=== PATIENT | female | born 1955 | race Caucasian/White ===

== ENCOUNTER 2017-08-25 13:44 | Emergency (ER) | payer OTHER ==
[2017-08-25] MEDS ORDERED: HYDROcodone/Acetaminophen 10/325 mg Tablet ONE (14:09)
--- NOTE | 2017-08-25 14:21 | RAD ---
LEFT HIP 2 VIEWS: Date: 08/25/17 HISTORY: Left hip pain without trauma. FINDINGS/IMPRESSION: There are postop changes with metallic hardware in the left proximal femur in good position and align ment. No fracture, dislocation, or bone destruction is seen. No perihardware lucencies are identified to suggest loosening. Mild degenerative changes are seen in the left hip joint. POS: ÓSCAR
== END 2017-08-25 14:41 | disposition home or self-care (01) ==
LOC: MADERS 13:44
DX: M79.81 Nontraumatic hematoma of soft tissue (principal); M25.552 Pain in left hip; J45.909 Unspecified asthma, uncomplicated; Z79.899 Other long term (current) drug therapy

== ENCOUNTER 2017-10-19 11:44 | Outpatient (CLI) | payer OTHER ==
[2017-10-19 12:50] LABS: Bilirubin Negative (Negative); Blood, Urine Moderate (Negative); Clarity Cloudy (Clear); Glucose, Urine (Dipstick) Negative (Negative); Leukocyte Large (Negative); Nitrite Negative (Negative); Protein, Urine (Dipstick) 100 mg/dL (Neg-Trace); Urobilinogen 0.2 mg/dL (0.2-1.0)
[2017-10-19 12:57] LABS: RBC/HPF 21-50 HPF (0-3)
[2017-10-19 12:58] LABS: Bacteria/HPF 1+ HPF (None Seen)
== END 2017-10-19 11:45 | disposition home or self-care (01) ==
LOC: MADLABBHPM 11:44
PROVIDERS: ATTEND Family Medicine
DX: M54.5 Low back pain (principal)
CPT/HCPCS: 81001; 87077; 87086; 87186

== ENCOUNTER 2017-10-28 08:32 | Emergency (ER) | payer OTHER ==
[2017-10-28] MEDS ORDERED: HYDROcodone/Acetaminophen 10/325 mg Tablet ONE (09:11)
[2017-10-28 09:16] LABS: Bilirubin Negative (Negative); Blood, Urine Trace (Negative); Clarity Clear (Clear); Glucose, Urine (Dipstick) Negative (Negative); Leukocyte Small (Negative); Nitrite Negative (Negative); Protein, Urine (Dipstick) Negative (Neg-Trace); Urobilinogen 0.2 mg/dL (0.2-1.0)
[2017-10-28 09:23] LABS: Bacteria/HPF Rare-Few HPF (None Seen); Hyaline Casts/LPF NONE SEEN LPF (0-3 Hyaline); RBC/HPF 0-3 HPF (0-3)
== END 2017-10-28 10:25 | disposition home or self-care (01) ==
LOC: MADERS 08:32
DX: N39.0 Urinary tract infection, site not specified (principal); J45.909 Unspecified asthma, uncomplicated; Z79.899 Other long term (current) drug therapy
CPT/HCPCS: 81003; 81015; 99283

== ENCOUNTER 2018-05-25 17:50 | Inpatient (IN) | payer BC, OTHER ==
[2018-05-25] MEDS ORDERED: HYDROcodone/Acetaminophen 10/325 mg Tablet PO PRN (20:59)
[2018-05-25] MEDS ORDERED: Senokot S 8.6-50 MG TAB PO SCH (21:15)
[2018-05-25] MEDS: Famotidine 20 MG TAB PO SCH (21:53)
[2018-05-25] MEDS: HYDROcodone/Acetaminophen 10/325 mg Tablet PO PRN (21:55)
[2018-05-26 05:40] LABS: ALT (SGPT) 8 U/L (8-55); AST (SGOT) 15 U/L (5-34); Albumin 3.1 g/dL (3.4-4.8); Alkaline Phosphatase 126 U/L (40-150); Anion Gap 15 mmol/L (10-20); BUN (Urea Nitrogen) 15 mg/dL (9.8-20.1); Bilirubin, Total 0.3 mg/dL (0.2-1.2); Calc. Creatinine Clearance 87 mL/min (70-130); Calcium 8.6 mg/dL (7.8-10.44); Carbon Dioxide 22 mmol/L (23-31); Chloride 107 mmol/L (98-107); Estimated GFR-MDRD 73; Globulin 2.8 g/dL (2.4-3.5); Glucose 90 mg/dL (80-115); Potassium 3.7 mmol/L (3.5-5.1); Protein, Total 5.9 g/dL (6.0-8.3); Sodium 140 mmol/L (136-145)
[2018-05-26 05:44] LABS: Hemoglobin 9.9 g/dL (12.0-16.0); Mean Corpuscular HGB CONC 33.2 g/dL (32.0-36.0); Mean Corpuscular Hemoglobin 29.9 pg (27.0-31.0); Mean Corpuscular Volume 89.9 fL (78.0-98.0); Mean Platelet Volume 6.2 fL (7.4-10.4); Platelet Count 252 thou/uL (130-400); RBC Distribution Width 12.4 % (11.5-14.5); Red Blood Cell (RBC) Count 3.31 mill/uL (4.20-5.40); White Blood Cell (WBC) Count 12.4 thou/uL (4.8-10.8)
[2018-05-26 06:04] LABS: Band 6 % (5-11); Eosinophils 5 % (0-10); Lymphocytes 25 % (21-51); MDiff Complete? YES; Metamyelocyte 3 % (0-0); Monocytes 4 % (0-10); Myelocyte 1 % (0-0); Neutrophil 56 % (42-75)
[2018-05-26] MEDS: Famotidine 20 MG TAB PO SCH ×2 (08:29→20:13)
[2018-05-26] MEDS: Polyethylene Glycol 3350 17 GM Packet PO SCH (08:29)
[2018-05-26] MEDS: Senokot S 8.6-50 MG TAB PO SCH ×2 (08:29→20:13)
[2018-05-26] MEDS: HYDROcodone/Acetaminophen 10/325 mg Tablet PO PRN ×3 (08:30→20:14)
--- NOTE | 2018-05-26 11:36 | HP ---
CHIEF COMPLAINT: Weakness following a right total knee arthroplasty on 05/23. PRESENT ILLNESS: The patient is a 62-year-old white female who has a history of asthma that is well controlled. She is independent of all her ADLs. She has severe degenerative arthritis of the right knee for which she required a total knee replacement done by Dr. Julien Cazares at [facility] on 05/23/2018. Postoperatively, she did very well with no complications. She had been up walking short distances and is moving the legs. Her pain has been well controlled with hydrocodone. She was sent to [facility] for continuation of in-hospital physical therapy on 05/25/2018. The patient was seen early on the morning of 05/26/2018. She said she has been do ing fine. She said her surgery went very well. She has been controlled in her pain with hydrocodone and she has been up walking some. PAST HISTORY: Right total knee replacement at [facility] on 05/23/2018, done by Dr Marilu Cazares and transferred to [facility] on 05/25/2018. The patient had a section in 1983, fracture of the distal left radius requiring open reduction internal fixation in December 2014. Intertrochanteric fracture of the left proximal femur requiring open reduction internal fixation, a lso on 12/28/2014, left thumb tendon transfer on 04/13/2015. Persistent asthma controlled with albut cresencio as needed and at times, she will require the Advair Diskus too. She has some gastroesophageal r eflux that is controlled with ranitidine, and also history of migraines that are now infrequent. PRESENT MEDICATIONS: Ranitidine 150 mg b.i.d., Ventolin inhaler 2 puffs b.i.d. and every 4 hours as needed, aspirin 81 mg b.i.d., MiraLax 17 g in 8 ounces of water daily, Senokot-S 2 b.i.d., hydrocodon e/acetaminophen 10/325 one or two every 4 hours as needed. ALLERGIES: No known allergies. REVIEW OF SYSTEMS: The patient has had no recent fever, no recent change in weight. HEAD AND NECK: No complaints. PULMONARY: No complaints. She has had no recent flares of her asthma and at the present only requir ing the Ventolin if needed and this is infrequent. CARDIOVASCULAR: No chest pain. GASTROINTESTINAL: No nausea, vomiting, or abdominal pain. She said she has not had a good bowel mov ement since her surgery. Last night, she was started on the MiraLax and the Senokot S increased to 2 b.i.d. MUSCULOSKELETAL: Her right knee is sore but the ice and pain medicines controlling this well. ADLs: The patient was independent of all her ADLs prior to her surgery. NEUROPSYCHIATRIC: No complaints. HABITS: Alcohol none. Tobacco none. SOCIAL HISTORY: Patient lives at home and is independent of all her ADLs and instrumental ADLs. PHYSICAL EXAMINATION: GENERAL: Shows a very pleasant 62-year-old white female who is sitting up in bed. She is alert, papo kative, oriented x3, and looks comfortable and in no distress. VITAL SIGNS: Her temperature is 98.2, pulse 97, respirations 18, O2 saturation 98% on room air, bloo d pressure 139/63. Her weight is 167. HEAD: Normocephalic, atraumatic. EYES: Pupils are equal, round, and reactive. EARS: TMs are clear. NOSE: Normal. MOUTH AND THROAT: Normal. NECK: Carotids are equal and strong, no bruits. Thyroid not enlarged. LUNGS: Clear. HEART: Regular rate. No murmurs. ABDOMEN: Soft, no organomegaly nor areas of tenderness. EXTREMITIES: Lower extremities, no edema. Right leg, the incision is well approximated with their D ermabond present. There are no anaya or sutures. There is no redness. There is a little increase d warmth to the knee compared to the left and the knees are little larger than the left, typical find ings for this postop. NEUROLOGIC: Alert, oriented x3, no focal weakness except the weakness and decreased range of motion of the right knee from the recent knee replacement. IMPRESSION: 1. Weakness and deconditioning with gait abnormality. A. Following a right total knee replacement on 05/23. B. Improving and ambulating short distances as of 05/26. 2. Severe osteoarthritis of the right knee. A. Status post right total knee replacement by the orthopedic surgeon, Dr. Julien Cazares on 201 8. B. Postop day #3, doing well on 05/26. 3. Asthma. A. Well controlled at present with just a periodic use of Ventolin inhaler as of 05/26. 4. Gastroesophageal reflux disease. A. Controlled. 5. Constipation. A. Secondary to recent surgery and pain medication. PLAN: The patient has been admitted to [facility] for continued PT and OT. She is receiving the SCDs for deep venous thrombosis prophylaxis and is on the aspirin. PT and OT will w ork with her. I have, last evening upon her admission, had increased her Senokot and started on Lucia Lax to help with constipation. The patient has availability of the Ventolin if needed for asthma. CODE STATUS: FULL.
[2018-05-27] MEDS: HYDROcodone/Acetaminophen 10/325 mg Tablet PO PRN ×2 (09:45→20:52)
[2018-05-27] MEDS: Famotidine 20 MG TAB PO SCH ×2 (09:47→20:52)
[2018-05-27] MEDS: Senokot S 8.6-50 MG TAB PO SCH ×2 (09:47→20:52)
[2018-05-27] MEDS: Polyethylene Glycol 3350 17 GM Packet PO SCH (09:47)
--- NOTE | 2018-05-27 10:56 | PRG ---
DATE OF SERVICE: 05/27/2018 SUBJECTIVE: The patient said she had a good night last evening. She had nurse walk with her. She w alked a lot and she said it felt good. Her knee is feeling better. OBJECTIVE: The patient is alert, talkative, appears very comfortable. She appears in no distress. Her temperature is 97.1, pulse 91, respirations 18, O2 sat 99% on room air, blood pressure 136/61. L ungs are clear. Heart, regular rate. Extremities, no edema. Right knee, the incision is doing well . There is no drainage, no redness. The right knee is larger than the left and a little warmer than the left, typical postop finding. LABORATORY DATA: H and H 9.9 and 29.8, white cell count 12,400 with 56% segs, 6% bands, 25% lymphocy leah, 3% metamyelocytes, 1% myelocytes. Her platelet count was 252,000. Sodium 140, potassium 3.7, g lucose 90, BUN 15, creatinine 0.8, GFR 73. ASSESSMENT: 1. Weakness and deconditioning with gait abnormality. A. Following a right total knee replacement on 05/23. B. Improving. Ambulating further as of 05/27/2018. 2. Severe osteoarthritis of the right knee. A. Status post right total knee replacement by the orthopedic surgeon, Dr. Julien Cazares on 8. B. Postoperative day #4, doing well as of 05/27/2018. 3. Asthma. A. Well controlled at present with just a periodic use of Ventolin inhaler as of 05/26. 4. Gastroesophageal reflux disease. A. Controlled. 5. Constipation. A. Secondary to recent surgery and pain medication. 6. Anemia secondary to a recent knee replacement. 7. Abnormal CBC with leukocytosis and left shift. Suspect secondary to increased margination from a recent surgery. PLAN: Continue PT/OT. We will follow up on CBC. Patient has not had any fever. No evidence of any infection.
[2018-05-28 07:08] LABS: Hemoglobin 10.1 g/dL (12.0-16.0); Mean Corpuscular Hemoglobin 30.1 pg (27.0-31.0); Mean Corpuscular Volume 88.6 fL (78.0-98.0); Mean Platelet Volume 5.1 fL (7.4-10.4); Platelet Count 293 thou/uL (130-400); RBC Distribution Width 12.4 % (11.5-14.5); Red Blood Cell (RBC) Count 3.36 mill/uL (4.20-5.40); White Blood Cell (WBC) Count 9.9 thou/uL (4.8-10.8)
[2018-05-28 07:09] LABS: MDiff Complete? YES; Neutrophil 60 % (42-75)
[2018-05-28 07:10] LABS: Band 5 % (5-11); Eosinophils 4 % (0-10); Lymphocytes 23 % (21-51); Monocytes 7 % (0-10); Myelocyte 1 % (0-0)
[2018-05-28] MEDS: Famotidine 20 MG TAB PO SCH ×2 (08:33→20:19)
[2018-05-28] MEDS: Polyethylene Glycol 3350 17 GM Packet PO SCH (08:33)
[2018-05-28] MEDS: HYDROcodone/Acetaminophen 10/325 mg Tablet PO PRN ×2 (08:34→20:19)
[2018-05-28] MEDS: Senokot S 8.6-50 MG TAB PO SCH ×2 (08:34→20:30)
[2018-05-28] MEDS ORDERED: Acetaminophen 325 MG TAB PO PRN (19:58)
[2018-05-28 21:45] LABS: Bilirubin Negative (Negative); Blood, Urine Trace (Negative); Clarity Slightly Cloudy (Clear); Glucose, Urine (Dipstick) Negative (Negative); Leukocyte Negative (Negative); Nitrite Negative (Negative); Protein, Urine (Dipstick) Negative (Neg-Trace); Specific Gravity, Urine 1.015 (1.005-1.030); Urobilinogen 0.2 mg/dL (0.2-1.0); pH, Urine 8.5 (5.0-9.0)
[2018-05-28 22:07] LABS: #Basophils 0.1 thou/uL (0.0-0.2); #Eosinphils 0.3 thou/uL (0.0-0.7); #Lymphocytes 2.9 thou/uL (1.20-3.40); #Monocytes 0.7 thou/uL (0.11-0.59); #Neutrophils 6.5 thou/uL (1.40-6.50); %Basophils 0.7 % (0.0-1.0); %Eosinophils 3.1 % (0.0-10.0); %Lymphocytes 27.2 % (21.0-51.0); Hemoglobin 10.4 g/dL (12.0-16.0); Mean Corpuscular HGB CONC 33.4 g/dL (32.0-36.0); Mean Corpuscular Hemoglobin 29.7 pg (27.0-31.0); Mean Corpuscular Volume 88.9 fL (78.0-98.0); Mean Platelet Volume 5.6 fL (7.4-10.4); Platelet Count 363 thou/uL (130-400); RBC Distribution Width 12.6 % (11.5-14.5); White Blood Cell (WBC) Count 10.5 thou/uL (4.8-10.8)
[2018-05-28 22:13] LABS: Bacteria/HPF 1+ HPF (None Seen); Crystals/HPF 2+ AMORPH PHOS HPF (Negative)
[2018-05-29] MEDS: HYDROcodone/Acetaminophen 10/325 mg Tablet PO PRN ×4 (02:18→20:16)
[2018-05-29 08:12] LABS: #Basophils 0.1 thou/uL (0.0-0.2); #Eosinphils 0.4 thou/uL (0.0-0.7); #Lymphocytes 3.3 thou/uL (1.20-3.40); #Monocytes 0.7 thou/uL (0.11-0.59); #Neutrophils 5.3 thou/uL (1.40-6.50); %Basophils 0.8 % (0.0-1.0); %Lymphocytes 33.4 % (21.0-51.0); %Monocytes 7.2 % (0.0-10.0); %Neutrophils 54.6 % (42.0-75.0); Hemoglobin 9.9 g/dL (12.0-16.0); Mean Corpuscular HGB CONC 33.7 g/dL (32.0-36.0); Mean Corpuscular Hemoglobin 30.2 pg (27.0-31.0); Mean Corpuscular Volume 89.4 fL (78.0-98.0); Mean Platelet Volume 5.4 fL (7.4-10.4); Platelet Count 320 thou/uL (130-400); RBC Distribution Width 12.5 % (11.5-14.5); White Blood Cell (WBC) Count 9.8 thou/uL (4.8-10.8)
[2018-05-29] MEDS ORDERED: Enoxaparin Sodium 40 MG/0.4 ML SYRINGE SC SCH (08:30)
--- NOTE | 2018-05-29 08:51 | CT ---
RIGHT LOWER EXTREMITY CT WITHOUT IV CONTRAST: HISTORY: A 62-year-old female with a history of postoperative pain following prior knee replacement. FINDINGS: There is some minimal scattered gas in the soft tissues as well as some postsurgical fluid changes wi thin the knee joint space with a small amount of hemorrhage and fluid and minimal persistent gas and minimal persistent air within the joint as well as the adjacent soft tissues, although markedly impro remedios when compared to the prior 05/23/2018 immediate postoperative plain film. There is some nonspeci fic scattered subcutaneous fat stranding throughout the lower extremity. No evidence for abscess or significant abnormal fluid collection. No intramuscular abnormal fluid collection. No evidence for an acute fracture. No evidence for a periprosthetic fracture, although plain film evaluation can jamal etimes be actually more beneficial in ruling out periprosthetic fractures because of the extensive ar tifact from the prosthesis metal. IMPRESSION: Postoperative changes involving the knee joint and soft tissues with some minimal nonspecific subcuta neous fat stranding. No evidence for acute fracture or dislocation. No intramuscular mass or absces s or abnormal fluid collection. POS: TPC
[2018-05-29] MEDS: Cipro 250 MG TAB PO SCH ×2 (09:04→20:15)
[2018-05-29] MEDS: Polyethylene Glycol 3350 17 GM Packet PO SCH (09:04)
[2018-05-29] MEDS: Famotidine 20 MG TAB PO SCH ×2 (09:04→20:15)
[2018-05-29] MEDS: Senokot S 8.6-50 MG TAB PO SCH ×2 (09:05→20:16)
--- NOTE | 2018-05-29 12:05 | PRG ---
DATE OF SERVICE: 05/29/2018 SUBJECTIVE: The patient had been doing very well, ambulating and having some moderate, intermittent pain in the right knee. Last evening, she began having some pain in the right leg over the anterior lower leg and could hardly move the leg. She also had a temperature elevation to 100.1. Subsequentl y, her temperatures have been normal. She did not like even ice pack applied to the lower legs. She said the weight of the ice pack hurt. She has not had any trouble with her breathing. OBJECTIVE: The patient lying in bed. She appears in no acute distress, but does not want to move th at right leg because she says it hurts. Her temperature is 97.5, pulse 81, respirations 20, O2 sat 9 8% on room air, blood pressure 115/53. Her lungs are clear. Heart, regular rate. The right leg, th e incision over the right knee does not look any different. There is just a slight redness around th e incision, but no more than what there has been. The leg is warm, but no more than what it has been . The right lower leg is larger than the left leg. There is bruising, some around the incision and some extending down the anterior aspect of the lower leg. The patient is tender to palpation over th e anterior tibial region. The right lower foot is warm. Pulses are present in the foot. There is n o deformity. She was not particularly tender over the calf. Her lab studies done last evening when she had a little temperature elevation showed an H&H of 10.4 and 31.1, white cell count 10,500 with 6 2% segs, 28% lymphocytes. The previous noted premature cells were no longer present. Her platelet c ount was 363,000. Her voided urine showed a pH of 8.5, RBC's 7-10, WBCs 11-20, epithelial cells 4-6, and 1+ bacteria, nitrite negative. ASSESSMENT: 1. Weakness and deconditioning with gait abnormality. A. Following a right total knee replacement on 05/23. B. Improving and ambulating short distances as of 05/26. C. Not wanting to get up or move the right leg due to pain as of 05/29/2018. 2. Severe osteoarthritis of the right knee. A. Status post right total knee replacement by the orthopedic surgeon, Dr. Julien Cazares on 8. B. Postop day #6, complaining of severe pain in the lower leg. 3. Asthma. A. Well controlled at present with just a periodic use of Ventolin inhaler as of 05/26. 4. Gastroesophageal reflux disease. A. Controlled. 5. Constipation. A. Secondary to recent surgery and pain medication. 6. Urinary tract infection as of 05/29/2018. 7. Severe right anterior lower leg pain as of 05/29/2018. A. Elevated D-dimer. Rule out deep venous thrombosis. PLAN: Culture of the urine has been made. We will place her on Cipro 500 mg b.i.d. for the urinary tract infection. We will image the right lower leg to ensure that there is no fracture, although the re is no deformity and think this is unlikely. Will have to do CT because the routine x-ray is down. We will also arrange for a venous Doppler to ensure there is no DVT. We will go ahead and give pat ient an initial dose of Lovenox at 1 mg/kg for possible DVT. We will call and visit with Dr. Cazares and update him. ADDENDUM: I visited with Dr. Julien Cazares by telephone to update him on the change in Mrs. Tavera. He and I both reviewed the CT scan of the lower leg. No fractures were seen. The radiologist report is pending. We both agree that this certainly is suggestive of a DVT, although the anterior leg fabian n is a little unusual. He agrees with going ahead and treating her with an initial dose of Lovenox a nd doing the venous Doppler. He is comfortable with her coming back here if this is positive.
[2018-05-29] MEDS ORDERED: Senokot S 8.6-50 MG TAB PO PRN (14:00)
[2018-05-30] MEDS: HYDROcodone/Acetaminophen 10/325 mg Tablet PO PRN ×5 (00:37→21:23)
[2018-05-30 07:48] VITALS: BMI 30.6
[2018-05-30] MEDS: Cipro 250 MG TAB PO SCH ×2 (09:37→21:22)
[2018-05-30] MEDS: Enoxaparin Sodium 40 MG/0.4 ML SYRINGE SC SCH (09:37)
[2018-05-30] MEDS: Famotidine 20 MG TAB PO SCH ×2 (09:37→21:24)
[2018-05-30] MEDS: Polyethylene Glycol 3350 17 GM Packet PO SCH (09:38)
[2018-05-30] MEDS: Senokot S 8.6-50 MG TAB PO SCH ×2 (09:39→21:24)
--- NOTE | 2018-05-30 12:57 | PRG ---
DATE OF SERVICE: 05/30/2018 SUBJECTIVE: The patient said she is feeling better today, still has a little soreness in that right lower anterior leg, but not near as much. Her CT of the lower legs showed for no fracture and was no rmal. The venous Doppler of the right leg showed no evidence of any deep vein thrombosis. OBJECTIVE: The patient is sitting up in a chair, looks comfortable, in no distress. Her temperature is 97.0, pulse 86, respirations 20, O2 sat 98% on room air, blood pressure 110/51. Lungs are clear. Heart, regular rate. Right leg, the incision healing well. The right knee is a little warm, but n o more so than it has been. The right knee is a little larger than the left. There is some yellowis h bruising from extravasation on the anterior lower leg. The leg is are a little larger than the lef t. The leg is less tender over the anterior aspect. She can dorsi and plantar flex the foot. ASSESSMENT: 1. Weakness and deconditioning with gait abnormality. A. Following a right total knee replacement on 05/23. B. Improved, pain in the right leg better, ready to start working with physical therapy again as of 05/30/2018. 2. Severe osteoarthritis of the right knee. A. Status post right total knee replacement by the orthopedic surgeon, Dr. Julien Cazares on 8. B. Postop day #7, improved, pain in the anterior lower leg much improved as of 05/30/2018. 3. Asthma. A. Well controlled at present with just a periodic use of Ventolin inhaler as of 05/26. 4. Gastroesophageal reflux disease. A. Controlled. 5. Constipation. A. Secondary to recent surgery and pain medication. 6. Urinary tract infection as of 05/29/2018. 7. Severe right anterior lower leg pain as of 05/29/2018. A. CT scan of the lower leg was normal. B. Venous Doppler of the right lower leg on 05/29/2018 showed no evidence of DVT. C. Today improved with less pain and ready to resume PT. PLAN: The patient is doing better today. The pain in that right lower leg is much better. She is r tiffanie to resume her physical therapy. The source of that pain is unsure, there was no evidence of DVT , no evidence of any bony injury to the lower leg. This may have just been related to the pain in th e muscles of the lower leg as she had increased her activities. We will gradually progress her PT an d continue the stretching exercises of the lower extremity. She is still not tolerant of the sequent ial compression devices, will utilize Lovenox 40 mg daily for DVT prophylaxis.
[2018-05-31 08:43] LABS: #Basophils 0.1 thou/uL (0.0-0.2); #Eosinphils 0.5 thou/uL (0.0-0.7); #Lymphocytes 2.3 thou/uL (1.20-3.40); #Monocytes 0.7 thou/uL (0.11-0.59); #Neutrophils 4.8 thou/uL (1.40-6.50); %Basophils 0.8 % (0.0-1.0); %Eosinophils 5.5 % (0.0-10.0); %Lymphocytes 27.2 % (21.0-51.0); %Monocytes 8.9 % (0.0-10.0); %Neutrophils 57.5 % (42.0-75.0); Hemoglobin 10.3 g/dL (12.0-16.0); Mean Corpuscular Hemoglobin 30.4 pg (27.0-31.0); Mean Corpuscular Volume 89.3 fL (78.0-98.0); Mean Platelet Volume 5.1 fL (7.4-10.4); Platelet Count 372 thou/uL (130-400); RBC Distribution Width 12.9 % (11.5-14.5); Red Blood Cell (RBC) Count 3.38 mill/uL (4.20-5.40); White Blood Cell (WBC) Count 8.3 thou/uL (4.8-10.8)
[2018-05-31] MEDS: Enoxaparin Sodium 40 MG/0.4 ML SYRINGE SC SCH (08:45)
[2018-05-31] MEDS: Polyethylene Glycol 3350 17 GM Packet PO SCH (08:45)
[2018-05-31] MEDS: Famotidine 20 MG TAB PO SCH ×2 (08:45→20:07)
[2018-05-31] MEDS: HYDROcodone/Acetaminophen 10/325 mg Tablet PO PRN ×3 (08:46→20:08)
[2018-05-31] MEDS: Cipro 250 MG TAB PO SCH ×2 (08:47→20:07)
[2018-05-31] MEDS: Senokot S 8.6-50 MG TAB PO SCH ×2 (08:48→20:07)
--- NOTE | 2018-05-31 10:04 | PRG ---
DATE OF SERVICE: 05/31/2018 SUBJECTIVE: The patient said she feels a lot better today. The right lower anterior leg feels michael r. There is a little burning sensation, but nothing as severe. She has been walking with physical t herapy and doing better. OBJECTIVE: GENERAL: The patient is alert and appears in no distress. She initially was seen in room and then i n PT, set up on a NuStep. She is alert, appears comfortable in no distress. VITAL SIGNS: Her temperature is 98.4, pulse 86, respirations 18, O2 sat 100% on room air, blood pres sure 145/68. LUNGS: Clear. HEART: Regular rate. EXTREMITIES: Right leg, the knee is little warm, but unchanged from yesterday, a little more than th e left leg, though, but typical postop warmth. The incision seems to be healing well. A little mild redness around the knee, there is still though yellowish bruising along the anterior lower leg. The re is just a little pink discoloration to that region too. The area is not indurated. ASSESSMENT: 1. Weakness and deconditioning with gait abnormality. A. Following a right total knee replacement on 05/23. B. Improved as of 05/31/2018. 2. Severe osteoarthritis of the right knee. A. Status post right total knee replacement by the orthopedic surgeon, Dr. Julien Cazares on 8. B. Postop day #8, improving. Pain in the anterior lower leg much improved as of 05/31/2018. 3. Asthma. A. Asymptomatic as of 05/31/2018. 4. Gastroesophageal reflux disease. A. Controlled. 5. Constipation. A. Secondary to recent surgery and pain medication. 6. Urinary tract infection as of 05/29/2018. 7. Severe right anterior lower leg pain as of 05/29/2018. A. CT scan of the lower leg was normal. B. Venous Doppler of the right lower leg on 05/29/2018 showed no evidence of DVT. C. Improved with minimal pain in the right lower leg, a little mild redness over the anterior leg, b ut no fever as of 05/31/2018. PLAN: Continue PT. We will continue to observe the leg. Recheck CBC.
[2018-05-31] MEDS: [UNRECOGNIZED DRUG - OTHER] INH PRN (21:59)
[2018-06-01] MEDS: HYDROcodone/Acetaminophen 10/325 mg Tablet PO PRN ×4 (01:15→22:12)
[2018-06-01] MEDS: Cipro 250 MG TAB PO SCH ×2 (08:36→20:14)
[2018-06-01] MEDS: Enoxaparin Sodium 40 MG/0.4 ML SYRINGE SC SCH (08:36)
[2018-06-01] MEDS: Famotidine 20 MG TAB PO SCH ×2 (08:37→20:13)
[2018-06-01] MEDS: Senokot S 8.6-50 MG TAB PO SCH ×2 (08:37→20:14)
[2018-06-01] MEDS: Polyethylene Glycol 3350 17 GM Packet PO SCH (08:37)
[2018-06-01] MEDS: [UNRECOGNIZED DRUG - OTHER] INH PRN (17:42)
[2018-06-01] MEDS ORDERED: Vancomycin HCl 1 GM in Sodium Chloride 0.9% 250 ML 250 ML IVPB SCH (21:00)
--- NOTE | 2018-06-01 21:21 | RAD ---
CHEST PA AND LATERAL: 06/01/18 HISTORY: 62-year-old female with history of fever. COMPARISON: 05/18/18. FINDINGS: Numerous stable small old granuloma calcifications. Dextroscoliosis of the thoracic spine. Heart size is normal. The lungs are clear of acute process. IMPRESSION: Old granulomatous disease. No acute intrathoracic disease. Stable dextroscoliosis. Atherosclerosis of the aorta. POS: RRE
[2018-06-01] MEDS: cefTRIAXone\\ROCEPHIN 2 GM in Sodium Chloride 0.9% 100 ML IVPB SCH (22:10)
[2018-06-01] MEDS ORDERED: Sodium Chloride 0.9% 10 ML ONE (22:28)
[2018-06-01] MEDS ORDERED: Sodium Chloride 0.9% 250 ML 250 ML ONE (22:28)
[2018-06-01] MEDS ORDERED: Sodium Chloride 0.9% 100 ML ONE (22:28)
[2018-06-01] MEDS: Vancomycin HCl 1 GM in Sodium Chloride 0.9% 250 ML 250 ML IVPB SCH (22:39)
[2018-06-02] MEDS: [UNRECOGNIZED DRUG - OTHER] INH PRN (00:47)
[2018-06-02] MEDS ORDERED: Albuterol Sulfate 2.5 mg/3 ml Neb NEB PRN (01:07)
[2018-06-02 05:16] LABS: Anion Gap 12 mmol/L (10-20); BUN (Urea Nitrogen) 18 mg/dL (9.8-20.1); Calc. Creatinine Clearance 73 mL/min (70-130); Calcium 9.2 mg/dL (7.8-10.44); Carbon Dioxide 29 mmol/L (23-31); Chloride 103 mmol/L (98-107); Estimated GFR-MDRD 61; Glucose 98 mg/dL (80-115); Potassium 4.3 mmol/L (3.5-5.1); Sodium 140 mmol/L (136-145)
[2018-06-02 05:22] LABS: Eosinophils 5 % (0-10); Hypochromia MODERATE=16-30 cells (100X) (0-5/hpf); Lymphocytes 16 % (21-51); MDiff Complete? YES; Macrocytosis SLIGHT = 6-15 cells (100X) (0-5/hpf); Mean Corpuscular HGB CONC 33.6 g/dL (32.0-36.0); Mean Corpuscular Hemoglobin 30.2 pg (27.0-31.0); Mean Corpuscular Volume 89.9 fL (78.0-98.0); Mean Platelet Volume 4.9 fL (7.4-10.4); Microcytosis SLIGHT = 6-15 cells (100X) (0-5/hpf); Monocytes 5 % (0-10); Neutrophil 73 % (42-75); PLT Morphology Comment Appears Adequate; Platelet Count 367 thou/uL (130-400); RBC Morphology Abnormal; Reactive Lymphocytes 1 % (0-10); White Blood Cell (WBC) Count 7.4 thou/uL (4.8-10.8)
[2018-06-02] MEDS: Albuterol Sulfate 2.5 mg/3 ml Neb NEB SCH ×2 (06:35→19:38)
[2018-06-02] MEDS: Polyethylene Glycol 3350 17 GM Packet PO SCH (08:03)
[2018-06-02] MEDS: HYDROcodone/Acetaminophen 10/325 mg Tablet PO PRN ×2 (08:03→17:00)
[2018-06-02] MEDS: Enoxaparin Sodium 40 MG/0.4 ML SYRINGE SC SCH (08:04)
[2018-06-02] MEDS: Senokot S 8.6-50 MG TAB PO SCH ×2 (08:04→20:44)
[2018-06-02] MEDS: Famotidine 20 MG TAB PO SCH ×2 (08:04→20:46)
[2018-06-02] MEDS: Cipro 250 MG TAB PO SCH ×2 (08:04→20:45)
--- NOTE | 2018-06-02 11:33 | PRG ---
DATE OF SERVICE: 06/01/2018 SUBJECTIVE: The patient said that she is doing pretty good, walking better, still though has some so reness over that right anterior lower leg. She has had red pinkness to that leg. OBJECTIVE: GENERAL: The patient is lying in bed, alert, appears in no acute distress. VITAL SIGNS: Her temperature 98.6, last evening she had a temperature of 99.2, pulse 85, respiration s 16, O2 sat 95%, blood pressure 123/60. EXTREMITIES: Her right leg, the incision seems to be healing well. There is just some slight puffin ess around the incision. There is kind of slightly light purplish discoloration around the skin and in one area of the patella, it is a little more apparent. There is evidence of yellow discoloration around the incision that extends down the anterior leg which looks like just extravasation of blood t hat is gradually resolving. There is a little pinkness to the skin, more on the lower half of the lo wer leg, but not contiguous as it had been yesterday. The area is not hot to the touch. LABORATORY DATA: Her CBC that was done yesterday showed a white cell count of 8300 with 57% segs, 27 % lymphocytes, H&H of 10.3 and 30.2 with a platelet count of 372,000. ASSESSMENT: 1. Weakness and deconditioning with gait abnormality. A. Following a right total knee replacement on 05/23. B. Improved as of 06/01/2018. 2. Severe osteoarthritis of the right knee. A. Status post right total knee replacement by the orthopedic surgeon, Dr. Julien Cazares on 8. B. Postop day #9, improving. The pain in the anterior leg is better, but not resolved and there is a little pink discoloration of the lower half of the lower leg as of 06/01/2018. 3. Asthma. A. Asymptomatic as of 05/31/2018. 4. Gastroesophageal reflux disease. A. Controlled. 5. Constipation. A. Secondary to recent surgery and pain medication. 6. Urinary tract infection as of 05/29/2018. 7. Severe right anterior lower leg pain as of 05/29/2018. A. CT scan of the lower leg was normal. B. Venous Doppler of the right lower leg on 05/29/2018 showed no evidence of DVT. C. Improved, but still has some pain in the anterior lower leg and there is still a pink rash over t he lower leg. PLAN: We will continue present care. We will continue to observe the leg. I do not think this is a cellulitis. There is no increased heat and this seems more like a local irritation. We will contin ue to observe. If she does develop fever or this becomes hot or develops more evidence of infection, we will place on antibiotics.
--- NOTE | 2018-06-02 11:35 | PRG ---
DATE OF SERVICE: 06/02/2018 SUBJECTIVE: The patient developed temperature of 101.5 around 1:40 this morning and was complaining of her legs hurting. She also has been coughing, and wheezing. She had blood cultures drawn x2. Ch est x-ray done and was started on IV vancomycin and Rocephin. This morning she says she is still hav ing some wheezing and cough. Her leg is hurting, but maybe feels a little better. She is also compl aining of her throat being sore. OBJECTIVE: GENERAL: The patient is sitting up in bed. She is in no acute distress, but just looks that she miguel s not feel too very well VITAL SIGNS: Show a temperature of 100.1, pulse 111, respirations 16, O2 sat is 97% on room air, blo od pressure 117/55. LUNGS: Her lungs have good breath sounds with some expiratory rhonchi and some end expiratory wheeze on forced expiration. HEART: Regular rate. EXTREMITIES: The right lower leg actually looks better than yesterday. She does have a little pinkn ess around the incision and a little larger area over the patellar area. This had extended down over the lower leg, but now it seems much less. Overall, the pink discoloration looks better than yester day. Patient does have increased warmth over the anterior lower leg, like this probably is all repre sented a cellulitis. LABORATORY DATA: Shows an H and H of 10 and 29.6, white cell count 7400 with 73% segs, 16% lymphocyt es, 1 reactive lymphocyte, platelet count was 367,000. Her sodium 140, potassium 4.3, BUN 18, creati nine 0.93, estimated GFR 61, glucose 98. The patient's chest x-ray shows the lungs were clear. She has scattered old granulomas and she has a moderate dextroscoliosis. ASSESSMENT: 1. Weakness and deconditioning with gait abnormality. A. Following a right total knee replacement on 05/23. B. Stable. 2. Severe osteoarthritis of the right knee. B. Postop day #10. Complicated by probable cellulitis of the lower leg as of 06/02/2018.A. Status post right total knee replacement by the orthopedic surgeon, Dr. Julien Cazares on 05/23/2018. 3. Asthma. A. Asthma exacerbation, probably from bronchitis as of 06/02/2018. 4. Gastroesophageal reflux disease. A. Controlled. 5. Constipation. A. Secondary to recent surgery and pain medication. 6. Urinary tract infection as of 05/29/2018. 7. Severe right anterior lower leg pain as of 05/29/2018. A. CT scan of the lower leg was normal. B. Venous Doppler of the right lower leg on 05/29/2018 showed no evidence of DVT. C. Probable cellulitis of the anterior lower leg and knee that looks better as of 06/02/2018 after i nitiation of the vancomycin and Rocephin early this a.m. PLAN: The patient is still running a little low grade fever. Cultures have been taken of the blood. She has been started on Rocephin and vancomycin for probable cellulitis of the right lower leg that actually looks better after these initial doses. She also has developed a bronchitis with an exacer bation of her asthma. She does get help with the albuterol nebulizers, but not complete. We will st art her on steroids to help with this. Never received a culture report on the urine, it may not have been set up. We will continue the Cipro for the possible urinary tract infection. We will continue PT. We will arrange for the patient to see Dr. Cazares and probably Dr. Castro for further direction on length of these antibiotics since she just had the knee replacement.
[2018-06-02] MEDS: Cepastat Lozenges 1 LOZ PO PRN ×2 (11:52→13:59)
[2018-06-02] MEDS: Vancomycin HCl 1 GM in Sodium Chloride 0.9% 250 ML 250 ML IVPB SCH ×2 (11:52→22:51)
[2018-06-02] MEDS: guaiFENesin ER 600 MG TAB PO SCH (20:45)
[2018-06-02] MEDS: cefTRIAXone\\ROCEPHIN 2 GM in Sodium Chloride 0.9% 100 ML IVPB SCH (21:38)
[2018-06-03] MEDS: HYDROcodone/Acetaminophen 10/325 mg Tablet PO PRN ×3 (01:12→17:33)
[2018-06-03 04:58] LABS: #Lymphocytes 0.6 thou/uL (1.20-3.40); #Monocytes 0.3 thou/uL (0.11-0.59); #Neutrophils 4.9 thou/uL (1.40-6.50); %Basophils 0.6 % (0.0-1.0); %Eosinophils 0.2 % (0.0-10.0); %Lymphocytes 9.9 % (21.0-51.0); %Monocytes 4.4 % (0.0-10.0); Hemoglobin 10.1 g/dL (12.0-16.0); Mean Corpuscular HGB CONC 33.1 g/dL (32.0-36.0); Mean Corpuscular Hemoglobin 29.7 pg (27.0-31.0); Mean Corpuscular Volume 89.6 fL (78.0-98.0); Platelet Count 332 thou/uL (130-400); RBC Distribution Width 13.2 % (11.5-14.5); Red Blood Cell (RBC) Count 3.41 mill/uL (4.20-5.40); White Blood Cell (WBC) Count 5.8 thou/uL (4.8-10.8)
[2018-06-03 05:01] LABS: Manual Diff?? NO
[2018-06-03 05:15] LABS: Anion Gap 12 mmol/L (10-20); BUN (Urea Nitrogen) 15 mg/dL (9.8-20.1); Calc. Creatinine Clearance 82 mL/min (70-130); Calcium 9.2 mg/dL (7.8-10.44); Carbon Dioxide 27 mmol/L (23-31); Chloride 107 mmol/L (98-107); Estimated GFR-MDRD 70; Glucose 142 mg/dL (80-115); Potassium 4.8 mmol/L (3.5-5.1); Sodium 141 mmol/L (136-145)
[2018-06-03] MEDS: Albuterol Sulfate 2.5 mg/3 ml Neb NEB SCH ×2 (06:07→20:18)
[2018-06-03] MEDS: Enoxaparin Sodium 40 MG/0.4 ML SYRINGE SC SCH (09:04)
[2018-06-03] MEDS: guaiFENesin ER 600 MG TAB PO SCH ×2 (09:05→20:20)
[2018-06-03] MEDS: predniSONE 20 MG TAB PO SCH (09:05)
[2018-06-03] MEDS: Polyethylene Glycol 3350 17 GM Packet PO SCH (09:05)
[2018-06-03] MEDS: Senokot S 8.6-50 MG TAB PO SCH ×2 (09:06→20:21)
[2018-06-03] MEDS: Famotidine 20 MG TAB PO SCH ×2 (09:06→20:21)
[2018-06-03] MEDS: Cipro 250 MG TAB PO SCH ×2 (09:06→20:20)
[2018-06-03 10:29] LABS: Vancomycin, Trough 11.5 ug/mL
[2018-06-03] MEDS: Vancomycin HCl 1 GM in Sodium Chloride 0.9% 250 ML 250 ML IVPB SCH ×2 (10:40→22:19)
[2018-06-03] MEDS: cefTRIAXone\\ROCEPHIN 2 GM in Sodium Chloride 0.9% 100 ML IVPB SCH (21:06)
[2018-06-03] MEDS: Cepastat Lozenges 1 LOZ PO PRN (21:07)
[2018-06-04] MEDS: HYDROcodone/Acetaminophen 10/325 mg Tablet PO PRN ×3 (00:59→21:22)
[2018-06-04] MEDS: Albuterol Sulfate 2.5 mg/3 ml Neb NEB SCH ×2 (06:06→17:50)
--- NOTE | 2018-06-04 07:03 | PRG ---
DATE OF SERVICE: 06/03/2018 SUBJECTIVE: The patient says she is feeling a lot better. Her cough is much better. She thinks she may still have a little wheeze. Her leg feels much better. She does not think she has had any feve r. OBJECTIVE: GENERAL: The patient is sitting up in bed with her legs on the bed. She looks very comfortable and in no distress. VITAL SIGNS: Show a temperature of 97.7; her pulse was 110, earlier 85; respirations 20; O2 sat 95% on room air; blood pressure 121/57. LUNGS: Have excellent breath sounds. There are some intermittent wheeze on more forced expiration. There is no rhonchi, no rales. HEART: Regular rate. EXTREMITIES: Right leg looks much better. The increased heat in the lower leg is much less and only slightly warmer than the opposite leg. The redness of the lower extremity around the knee is all re solving. There is still a little mild light purplish discoloration around the incision. Leg is not tender to just light palpation. Overall, the leg looks much better. LABORATORY DATA: Her lab shows H&H of 10.1 and 30.6 with a white cell count of 5800 with 85% segs, 1 0% lymphocytes, and a platelet count of 332,000. Her sodium is 141, potassium 4.8, BUN 15, creatinin e 0.83, estimated GFR is 70, glucose 142. Her vancomycin trough level 11.5. Blood cultures have no growth to date. ASSESSMENT: 1. Weakness and deconditioning with gait abnormality. A. Following a right total knee replacement on 05/23. B. Improved as of 06/03/2018. 2. Severe osteoarthritis of the right knee. A. Status post right total knee replacement by Dr. Julien Cazares on 05/23/2018. B. Postop day #11, improved. Cellulitis of the right anterior lower leg and knee, much improved as of 06/03/2018. 3. Asthma. A. Asthma exacerbation, probably from bronchitis as of 06/02/2018. 1. Improved, but still has some expiratory wheezes as of 06/03. 4. Gastroesophageal reflux disease. A. Controlled. 5. Constipation. A. Secondary to recent surgery and pain medication. 6. Urinary tract infection as of 05/29/2018. A. Asymptomatic, remains on Cipro. Urine culture apparently was not collected with the urinalysis. 7. Severe right anterior lower leg pain as of 05/29/2018. A. CT scan of the lower leg was normal. B. Venous Doppler of the right lower leg on 05/29/2018 showed no evidence of DVT. C. Probable cellulitis of the anterior lower leg and knee that looks better as of 06/02/2018 after i nitiation of the vancomycin and Rocephin early this a.m. 1. Markedly improved as of 06/03/2018. Presently afebrile. Blood cultures, no growth. PLAN: Overall, the patient looks much better. She still has a little wheezing. We will continue th e prednisone and her nebulizer treatments. We will continue the vancomycin and the Rocephin and PT a nd OT.
[2018-06-04] MEDS: Famotidine 20 MG TAB PO SCH ×2 (09:11→21:17)
[2018-06-04] MEDS: guaiFENesin ER 600 MG TAB PO SCH ×2 (09:11→21:17)
[2018-06-04] MEDS: Enoxaparin Sodium 40 MG/0.4 ML SYRINGE SC SCH (09:11)
[2018-06-04] MEDS: Cipro 250 MG TAB PO SCH ×2 (09:11→21:16)
[2018-06-04] MEDS: predniSONE 20 MG TAB PO SCH (09:11)
[2018-06-04] MEDS: Senokot S 8.6-50 MG TAB PO SCH ×2 (09:12→21:17)
[2018-06-04] MEDS: Polyethylene Glycol 3350 17 GM Packet PO SCH (09:12)
[2018-06-04 10:09] LABS: ALT (SGPT) 34 U/L (8-55); AST (SGOT) 24 U/L (5-34); Albumin 3.7 g/dL (3.4-4.8); Alkaline Phosphatase 131 U/L (40-150); Anion Gap 13 mmol/L (10-20); BUN (Urea Nitrogen) 14 mg/dL (9.8-20.1); Bilirubin, Total 0.3 mg/dL (0.2-1.2); Calc. Creatinine Clearance 76 mL/min (70-130); Calcium 9.3 mg/dL (7.8-10.44); Carbon Dioxide 26 mmol/L (23-31); Chloride 105 mmol/L (98-107); Estimated GFR-MDRD 63; Globulin 3.3 g/dL (2.4-3.5); Glucose 90 mg/dL (80-115); Potassium 4.3 mmol/L (3.5-5.1); Sodium 140 mmol/L (136-145)
[2018-06-04] MEDS: Vancomycin HCl 1 GM in Sodium Chloride 0.9% 250 ML 250 ML IVPB SCH ×2 (10:36→22:19)
--- NOTE | 2018-06-04 15:00 | PRG ---
DATE OF SERVICE: 06/04/2018 SUBJECTIVE: The patient says her leg is feeling alright, just has a little stinging sensation of the anterior lower leg. She is not having the severe pain in the leg that she has had previously. She said she is still coughing and wheezing a little bit. She did not sleep as much she says in the past when she has taken the prednisone. It has interfered with her sleeping. OBJECTIVE: The patient is sitting up in bed, is alert, appears in no acute distress. Her temperatur e is 98.2, pulse 88, respirations 18, O2 sat 100% on room air, blood pressure 114/57. Lungs show goo d breath sounds with some expiratory rhonchi and some wheeze on forced expiration. The lungs sound a bout the same. Heart, regular rate. Her right lower extremity looks better. There is a little slig ht yellow discoloration from the bruising. The incision is healing well. There is just a slight lig ht purple discoloration around the skin. There is no drainage. There are no areas of fluctuance. T he lower leg looks much better. The swelling in the leg is resolving. Overall, the leg looks better . ASSESSMENT: 1. Weakness and deconditioning with gait abnormality. A. Following a right total knee replacement on 05/23. B. Improved as of 06/04/2018. 2. Severe osteoarthritis of the right knee. A. Status post right total knee replacement by Dr. Julien Cazares on 05/23/2018. B. Postop day #11, improved. Cellulitis of the right anterior lower leg and knee, much improved as of 06/04/2018. 3. Asthma. A. Asthma exacerbation, probably from bronchitis as of 06/02/2018. 1. Gradual improvement, but still has some expiratory wheeze as of 06/04/2018. 4. Gastroesophageal reflux disease. A. Controlled. 5. Constipation. A. Secondary to recent surgery and pain medication. 6. Urinary tract infection as of 05/29/2018. A. Asymptomatic, remains on Cipro. Urine culture apparently was not collected with the urinalysis. 7. Severe right anterior lower leg pain as of 05/29/2018. A. CT scan of the lower leg was normal. B. Venous Doppler of the right lower leg on 05/29/2018 showed no evidence of DVT. C. Probable cellulitis of the anterior lower leg and knee that looks better as of 06/02/2018 after i nitiation of the vancomycin and Rocephin early this a.m. 1. Continued improvement as of 06/04/2018. PLAN: Continue present care. Continue the steroids and neb treatments. We will repeat trough level on the vancomycin in the morning. Her trough level was 11.5, which is, I think, appropriate for the cellulitis that she is improving. We will recheck the level tomorrow along with CBC, sed rate, CMP, and CRP.
[2018-06-04] MEDS: cefTRIAXone\\ROCEPHIN 2 GM in Sodium Chloride 0.9% 100 ML IVPB SCH (21:18)
[2018-06-05 05:51] LABS: #Basophils 0.1 thou/uL (0.0-0.2); #Eosinphils 0.1 thou/uL (0.0-0.7); #Lymphocytes 2.6 thou/uL (1.20-3.40); #Monocytes 0.5 thou/uL (0.11-0.59); #Neutrophils 6.1 thou/uL (1.40-6.50); %Basophils 0.8 % (0.0-1.0); %Eosinophils 1.1 % (0.0-10.0); %Lymphocytes 27.8 % (21.0-51.0); %Monocytes 5.4 % (0.0-10.0); %Neutrophils 64.8 % (42.0-75.0); Hemoglobin 10.3 g/dL (12.0-16.0); Mean Corpuscular HGB CONC 31.9 g/dL (32.0-36.0); Mean Corpuscular Hemoglobin 29.1 pg (27.0-31.0); Mean Corpuscular Volume 91.1 fL (78.0-98.0); Mean Platelet Volume 5.1 fL (7.4-10.4); Platelet Count 404 thou/uL (130-400); RBC Distribution Width 13.3 % (11.5-14.5); Red Blood Cell (RBC) Count 3.55 mill/uL (4.20-5.40); White Blood Cell (WBC) Count 9.4 thou/uL (4.8-10.8)
[2018-06-05] MEDS: Albuterol Sulfate 2.5 mg/3 ml Neb NEB SCH ×5 (05:53→17:56)
[2018-06-05] MEDS: Senokot S 8.6-50 MG TAB PO SCH ×2 (09:12→20:56)
[2018-06-05] MEDS: predniSONE 20 MG TAB PO SCH (09:16)
[2018-06-05] MEDS: guaiFENesin ER 600 MG TAB PO SCH ×2 (09:17→20:55)
[2018-06-05] MEDS: Famotidine 20 MG TAB PO SCH ×2 (09:18→20:57)
[2018-06-05] MEDS: Polyethylene Glycol 3350 17 GM Packet PO SCH (09:19)
[2018-06-05] MEDS: Enoxaparin Sodium 40 MG/0.4 ML SYRINGE SC SCH (09:20)
[2018-06-05] MEDS: HYDROcodone/Acetaminophen 10/325 mg Tablet PO PRN ×3 (09:35→21:34)
[2018-06-05 10:25] LABS: Vancomycin, Trough 17.4 ug/mL
[2018-06-05] MEDS: Vancomycin HCl 1 GM in Sodium Chloride 0.9% 250 ML 250 ML IVPB SCH ×2 (11:03→22:15)
--- NOTE | 2018-06-05 13:50 | PRG ---
DATE OF SERVICE: 06/05/2018 SUBJECTIVE: The patient said her leg feels just fine. She is not have any trouble with it. She nav d she is still coughing and wheezing. OBJECTIVE: The patient is sitting up in bed. She is alert, appears in no distress. Her vital signs show a temperature of 97.9, pulse 104, respirations 20, O2 saturation 94% on room air, blood pressur e 129/71. Lungs have expiratory wheezes present and rhonchi. Breath sounds are good. Heart, regula r rate. Right leg incision is healing well. There is no drainage. There is no redness. The warmth of the lower leg is resolving. Overall, the leg looks excellent. Her lab shows an H&H of 10.3 and 32.3, white cell count 9400 with 65% segs, 28% lymphocytes, and a platelet count of 404. Sed rate 53 . Chemistries are pending. Vancomycin trough level pending. ASSESSMENT: 1. Weakness and deconditioning with gait abnormality. A. Following a right total knee replacement on 05/23. B. Improved as of 06/05/2018. 2. Severe osteoarthritis of the right knee. A. Status post right total knee replacement by Dr. Julien Cazares on 05/23/2018. B. Postop day #11, improved. Cellulitis of the right anterior lower leg and knee, much improved as of 06/05/2018. 3. Asthma. A. Asthma exacerbation, probably from bronchitis as of 06/02/2018. 1. Persists, still having expiratory wheezes as of 06/05/2018. 4. Gastroesophageal reflux disease. A. Controlled. 5. Constipation. A. Secondary to recent surgery and pain medication. 6. Urinary tract infection as of 05/29/2018. A. Asymptomatic, remains on Cipro. Urine culture apparently was not collected with the urinalysis. 7. Severe right anterior lower leg pain as of 05/29/2018. A. CT scan of the lower leg was normal. B. Venous Doppler of the right lower leg on 05/29/2018 showed no evidence of DVT. C. Probable cellulitis of the anterior lower leg and knee that looks better as of 06/02/2018 after i nitiation of the vancomycin and Rocephin early this a.m. 1. Resolving as of 06/05/2018. PLAN: Overall, the patient's leg looks excellent. The cellulitis of the leg is all resolving. Her blood cultures have no growth at 48 hours. We will check a nasopharyngeal smear for influenza due to the persistence of her asthma. We will use the neb treatments q.i.d. and add Symbicort 2 puffs twic e a day. We will continue PT, OT. We will discontinue the Cipro since she has been on for 7 days. No culture was gathered at the initial UA, but the symptoms have all resolved.
[2018-06-05] MEDS: Mometasone/Formoterol 60 PUFF AER INH SCH (17:55)
[2018-06-05] MEDS: cefTRIAXone\\ROCEPHIN 2 GM in Sodium Chloride 0.9% 100 ML IVPB SCH (21:01)
[2018-06-06] MEDS: Mometasone/Formoterol 60 PUFF AER INH SCH ×2 (06:28→17:21)
[2018-06-06] MEDS: HYDROcodone/Acetaminophen 10/325 mg Tablet PO PRN ×4 (08:16→22:07)
[2018-06-06] MEDS: Senokot S 8.6-50 MG TAB PO SCH ×2 (08:17→20:53)
[2018-06-06] MEDS: guaiFENesin ER 600 MG TAB PO SCH ×2 (08:18→20:52)
[2018-06-06] MEDS: predniSONE 20 MG TAB PO SCH (08:19)
[2018-06-06] MEDS: Albuterol Sulfate 2.5 mg/3 ml Neb NEB SCH ×4 (08:19→20:52)
[2018-06-06] MEDS: Famotidine 20 MG TAB PO SCH ×2 (08:19→20:53)
[2018-06-06] MEDS: Polyethylene Glycol 3350 17 GM Packet PO SCH (08:19)
[2018-06-06] MEDS: Enoxaparin Sodium 40 MG/0.4 ML SYRINGE SC SCH (08:20)
[2018-06-06] MEDS ORDERED: Sodium Chloride 0.9% 250 Advantage ONE (09:00)
[2018-06-06] MEDS ORDERED: Sodium Chloride 0.9% 100 ML BAG ONE (09:00)
--- NOTE | 2018-06-06 10:27 | PRG ---
DATE OF SERVICE: 06/06/2018 SUBJECTIVE: The patient says she feels real good today. Her right knee is feeling a lot better. Th e leg feels better. Her breathing is a lot better and she is not coughing like she was. She is davidson ng good progress with physical therapy. She walked yesterday up to 800 feet with a rolling walker an d then 2 other times walked 150 feet. She is transferring with just supervision only. OBJECTIVE: The patient is sitting up in bed. She looks very comfortable and in no distress. Her te mperature is 99.6 last night, her pulse was 108, this morning 90, O2 sat 97% on room air. Blood pres sure 139/65. Her lungs, the patient's lungs sound much better. There were no rales. She has no rho nchi. There was an occasion with very slight wheeze on forced expiration and this was only intermitt ent. Lungs sound much improved. Heart; regular rate. Right leg; there is slight increased warmth c ompared to the opposite leg, but no more than what it has been. This has all resolved, incision heal ing well. Her C-reactive protein was 1.39 done yesterday and her sed rate yesterday was 53. Her va ncomycin trough level was 17.4, which is in the therapeutic range. ASSESSMENT: 1. Weakness and deconditioning with gait abnormality. A. Following a right total knee replacement on 05/23. B. Marked improvement as of 06/06/2018. Walking up to 800 feet, transferring with supervision only. 2. Severe osteoarthritis of the right knee. A. Status post right total knee replacement by Dr. Julien Cazares on 05/23/2018. B. Postop day #12. Marked improvement. Cellulitis of the right anterior lower leg and knee resolve d clinically as of 06/06/2018. 3. Asthma. A. Asthma exacerbation, probably from bronchitis as of 06/02/2018. 1. Marked improvement as of 06/06/2018. 4. Gastroesophageal reflux disease. A. Controlled. 5. Constipation. A. Secondary to recent surgery and pain medication. 6. Urinary tract infection as of 05/29/2018. A. Asymptomatic, remains on Cipro. Urine culture apparently was not collected with the urinalysis. 7. Severe right anterior lower leg pain as of 05/29/2018. A. CT scan of the lower leg was normal. B. Venous Doppler of the right lower leg on 05/29/2018 showed no evidence of DVT. C. Probable cellulitis of the anterior lower leg and knee that looks better as of 06/02/2018 after i nitiation of the vancomycin and Rocephin early this a.m. 1. Continued to clinically resolve as of 06/06/2018. On day 5 of IV antibiotics. PLAN: I will continue the IV antibiotics at least for a full 7 days. We will check with her orthope dic surgeon, Dr. Cazares, to be sure he is in agreement and then we will switch her to oral antibiotic s at least for 2 weeks more. The patient was scheduled to see Dr. Cazares on 06/12/2018, she has mascorro ged this to 06/14/2018. We will continue PT. Continue present dose of prednisone. If continues to d o well, we will begin tapering of this tomorrow.
[2018-06-06] MEDS: Vancomycin HCl 1 GM in Sodium Chloride 0.9% 250 ML 250 ML IVPB SCH ×2 (10:50→22:06)
[2018-06-06] MEDS: cefTRIAXone\\ROCEPHIN 2 GM in Sodium Chloride 0.9% 100 ML IVPB SCH (20:59)
[2018-06-07] MEDS: Mometasone/Formoterol 60 PUFF AER INH SCH ×2 (06:11→19:26)
[2018-06-07] MEDS ORDERED: predniSONE 20 MG TAB PO SCH ×2 (08:13→12:00)
[2018-06-07] MEDS ORDERED: Sodium Chloride 0.9% 100 ML BAG ONE ×2 (09:00)
[2018-06-07] MEDS ORDERED: Sodium Chloride 0.9% 250 Advantage ONE (09:00)
[2018-06-07] MEDS: HYDROcodone/Acetaminophen 10/325 mg Tablet PO PRN ×3 (09:04→19:41)
[2018-06-07] MEDS: Famotidine 20 MG TAB PO SCH ×2 (09:04→21:10)
[2018-06-07] MEDS: Enoxaparin Sodium 40 MG/0.4 ML SYRINGE SC SCH (09:05)
[2018-06-07] MEDS: Polyethylene Glycol 3350 17 GM Packet PO SCH (09:05)
[2018-06-07] MEDS: Senokot S 8.6-50 MG TAB PO SCH ×2 (09:05→21:10)
[2018-06-07] MEDS: guaiFENesin ER 600 MG TAB PO SCH ×2 (09:05→21:10)
[2018-06-07] MEDS: Albuterol Sulfate 2.5 mg/3 ml Neb NEB SCH ×4 (09:06→21:09)
[2018-06-07] MEDS: Vancomycin HCl 1 GM in Sodium Chloride 0.9% 250 ML 250 ML IVPB SCH ×2 (10:58→22:05)
--- NOTE | 2018-06-07 11:07 | PRG ---
DATE OF SERVICE: 06/07/2018 SUBJECTIVE: The patient is doing better and she is hoping to go home today. She lives at home by herself and has a daughter in [place] who will come over to assist her some, but would not be staying with her. She is doing better with therapy. Her breathing is doing better. OBJECTIVE: GENERAL: The patient is alert, appears comfortable, in no distress. VITAL SIGNS: Show a temperature of 98.2, pulse 97, respirations 20, O2 sat 96% on room air, and blood pressure 150/70. LUNGS: Clear. Breath sounds are good. There is a slight hoarseness on expiration intermittently. Did not hear any wheeze. HEART: Regular rate. EXTREMITIES: Right leg; there is no redness, no swelling in the lower leg. Knee, incision over the right is healing well. There is no redness, no drainage. Right knee slightly larger than the left. ASSESSMENT: 1. Weakness and deconditioning with gait abnormality. a. Continuing improvement as of 06/07/2018.. b. Marked improvement as of 06/06/2018. Walking up to 800 feet, transferring with supervision only. 2. Severe osteoarthritis of the right knee. a. Status post right total knee replacement by Dr. Julien Cazares on 05/23/2018. b. Postop day #15. Continued improvement, excellent walking and now able to go up and down some steps. Cellulitis of the lower right leg is clinically resolved as of 06/07/2018. 3. Asthma. a. Asthma exacerbation, probably from bronchitis as of 06/02/2018. 4. Continued improvement as of 06/07/2018. 5. Gastroesophageal reflux disease. a. Controlled. 6. Constipation. a. Secondary to recent surgery and pain medication. 7. Urinary tract infection as of 05/29/2018. a. Asymptomatic, remains on Cipro. Urine culture apparently was not collected with the urinalysis. 8. Severe right anterior lower leg pain as of 05/29/2018. a. CT scan of the lower leg was normal. b. Venous Doppler of the right lower leg on 05/29/2018 showed no evidence of DVT. c. Probable cellulitis of the anterior lower leg and knee that looks better as of 06/02/2018 after initiation of the vancomycin and Rocephin early this a.m. 9. Clinically resolved as of 06/07. PLAN: We will continue the IV antibiotics for today, which she is willing to do, which will complete a full 6 days of IV antibiotics, and then we will switch her to oral antibiotics. Then, we will anticipate discharge tomorrow. We will reduce her prednisone to 20 mg a day, then as an outpatient, continue to taper this. Job ID: [id number]
[2018-06-07] MEDS: cefTRIAXone\\ROCEPHIN 2 GM in Sodium Chloride 0.9% 100 ML IVPB SCH (21:08)
[2018-06-08 07:28] VITALS: BP 131/63; TEMP 97.5
[2018-06-08] MEDS: Mometasone/Formoterol 60 PUFF AER INH SCH (09:13)
[2018-06-08] MEDS: Enoxaparin Sodium 40 MG/0.4 ML SYRINGE SC SCH (09:14)
[2018-06-08] MEDS: guaiFENesin ER 600 MG TAB PO SCH (09:15)
[2018-06-08] MEDS: Albuterol Sulfate 2.5 mg/3 ml Neb NEB SCH ×2 (09:15→13:04)
[2018-06-08] MEDS: Senokot S 8.6-50 MG TAB PO SCH (09:15)
[2018-06-08] MEDS: Polyethylene Glycol 3350 17 GM Packet PO SCH (09:18)
[2018-06-08] MEDS: HYDROcodone/Acetaminophen 10/325 mg Tablet PO PRN ×2 (09:26→13:26)
[2018-06-08] MEDS: Famotidine 20 MG TAB PO SCH (09:28)
[2018-06-08] MEDS: Vancomycin HCl 1 GM in Sodium Chloride 0.9% 250 ML 250 ML IVPB SCH (11:00)
--- NOTE | 2018-06-09 07:31 | DIS ---
DATE OF ADMISSION: 05/25/2018 DATE OF DISCHARGE: 06/08/2018 FINAL DIAGNOSES: 1. Weakness and deconditioning following right knee replacement. a. Marked improvement walking up to a 100 feet with rolling walker, transferring independently as of 06/08/2018. 2. Severe osteoarthritis of the right knee. a. Status post right total knee replacement by Dr. Julien Cazares on 2017. b. Excellent healing as of 06/08/2018. 3. Cellulitis of the right anterior knee and anterior lower leg. a. Initially presenting with a red rash and burning sensation with increased heat and temperature. b. CT scan of the right lower leg normal. c. Venous Doppler of the right lower leg on 05/29/2018 showed no evidence of deep venous thrombosis. d. Treated with 6 days of IV vancomycin and Rocephin from 06/02/2018 to 2017. e. Resolved as of 06/08/2018. 4. Asthma. a. Complicated by an acute exacerbation with bronchitis. b. Resolving as of 06/08/2018. 5. Gastroesophageal reflux disease, controlled. 6. Constipation. 7. Urinary tract infection. a. Treated with a 7-day course of Cipro. b. Urine culture apparently was not gathered when UA obtained. HISTORY: The patient is a 62-year-old white female who has a history of severe osteoarthritis of the right knee that had failed conservative measures and was creating increasing pain with any weightbearing. Her orthopedic surgeon Dr. Julien Cazares has worked with her for quite sometime and eventually she came to require a right total knee replacement that was done without complications on 05/23/2018. She was hospitalized for this at [facility] from 05/23/2018 through 2017 and then she was transferred to [facility] for purpose of PT and OT. The patient has a history of asthma that has been well controlled, gastroesophageal reflux disease. Initially, the patient was seen and was doing very well in her postop, was up ambulating short distances, was transferring with some mild assistance. An incision looked very clean with no redness, the right knee was little larger than the left and had some increased warmth, which was difficult during this postop. Physical Therapy and OT began working with her with the purpose of increasing her strength and deconditioning functional capabilities. HOSPITAL COURSE: The patient did excellent during her initial few days in the hospital. She worked very well with physical therapy and was transferring easier and her pain was well controlled. She then developed some very severe pain in the right lower anterior leg where she could not tolerate using the sequential compression devices and could hardly stand someone touching the leg. There was no rash. There was just some mild redness on the left. The patient underwent a CT scan of the lower leg, which showed no fracture or any soft tissue abscess formation. She also underwent a venous Doppler, which showed no evidence of DVT. She initially had been given a dose of Lovenox 1 mg/kg for the possibility of DVT, but this full dose of Lovenox for DVT was not continued after the negative venous Doppler was obtained. The patient was placed on Lovenox prophylaxis daily at 40 mg. The patient seemed to do better and the severe pain resolved. She did develop a little mild redness and some bruising along the lower leg. I felt it was just typical postop changing and this was just observed. She developed burning sensation in the leg and then on the evening of the , she developed a temperature of 101.5. The right lower leg and up to the knee was very red and very warm to touch much more so than it had been. Blood cultures were obtained. Urinalysis had been obtained a few days ago when she had had a mild temperature elevation and showed 15 to 20 wbc's. For this, she was started on Cipro. No culture was obtained inadvertently. She did complete a 7- day course of the Cipro, but had no urinary symptoms. On the evening of the when she spiked the temperature of 101.5, blood cultures were obtained and then she was started on vancomycin and Rocephin. By the following morning, she was feeling much better. Her fever was resolving and her leg looked much better. The increased heat had decreased. The redness of the lower leg had markedly improved. Over the next 48 hours, redness of the leg completely resolved. There was no bleeding, and all the tenderness and burning sensation resolved. The swelling in the lower leg had all resolved. Overall, the leg looked excellent. The incision look good. There was no fluctuance around the incision and no joint effusion. It was felt that the patient had had a cellulitis that had gradually progressed down the lower leg and had presented with the fever, increased pain, and heat. That responded very quickly to the antibiotics. She completed a 6-day course of this and then upon her discharge on the , will be sent home on clindamycin for a 2-week period. The patient made excellent progress with PT. She is walking at times up to 800 feet, was able to walk up and down stairs, which she will have to do at home. She has 3 steps to get in to her home, which she could safety do. She was ambulating with the use of a rolling walker. During her hospitalization, she also developed an exacerbation of her asthma at the same time that she spiked the temperature on the . Her chest x-ray was clear. She had a diffuse wheezing. Her influenza and nasopharyngeal swab were negative for type A and B. She was treated with steroids and nebulization treatment and Dulera with gradual resolution of the wheezing. By 06/08/2018, the patient was ambulating excellent with the rolling walker, transferring independently. Her lungs were clear and she remained afebrile and the leg showed no swelling in the lower leg. No redness. Incision healing well, felt like the patient now could be managed safely at home. I had visited over the phone with Dr. Cazares on a couple of occasion when she had this severe pain and also with the cellulitis and he was in agreement with the care given and recommended discharge on the clindamycin. He will be seeing her in followup on 06/14/2018. DISPOSITION: Diet, regular diet. Activities, ambulate with the use of walker. [facility] for the strengthening and gait training and flexibility of the right knee. MEDICATIONS: 1. Acetaminophen 650 mg every 4 hours as needed. 2. Hydrocodone/acetaminophen 10/325 one or two every six hours as needed for pain. 3. Ventolin inhaler 2 puffs q.i.d. and every 4 hours as needed. 4. Dulera 1 inhalation b.i.d. 5. Clindamycin 300 mg t.i.d. x14 days. 6. Ranitidine 150 mg bid 7. Aspirin 81 mg daily. 8. MiraLax 17 g 8 ounces of water daily. 9. Senokot-S two b.i.d. 10. Prednisone 5 mg 4 tabs daily x 3 days, then 3 tabs daily x 3 days. then 2 tabs daily x 3 days, then 1 tab daily x 3 days and then stop. FOLLOWUP: Arrangements will be made for the patient to receive physical therapy at the [facility]. The patient to see Dr. Cazares in followup on 06/14/2018. The patient should be scheduled to see myself in 2 weeks. CODE STATUS: Full code. Job ID: [id number] MTDD
--- NOTE | 2018-06-15 14:16 | PQF ---
DAVID HAND GROVER MD [id number] CLINICAL DOCUMENTATION CLARIFICATION FORM: POST DISCHARGE Addendum to original discharge summary date: ____ Late entry note date: __ DATE: 06/15/2018 ATTN: DR. GOLD Please exercise your independent, professional judgment in responding to the clarification form. Clinical indicators are provided on the bottom of this form for your review Please check appropriate box(s): Cellulitis -Right knee [ ] Due to postoperative [ ] Other diagnosis [ ] Unable to determine In addition, please specify: Present on Admission (POA): [ ] Yes [ ] No [ ] Unable to determine For continuity of documentation, please document condition throughout progress notes and discharge summary. Thank You. CLINICAL INDICATORS - SIGNS / SYMPTOMS / LABS: 05/31 PN - Skin condition -mild redness around the knee, yellowish bruising along the anterior lower leg 06/03-06/07 PN - Documentation of Cellulitis- anterior lower leg and knee RISKS: Recent surgery - Right total knee arthroplasty on 05/23 TREATMENT: Antibiotics -Vancomycin, Rocephin (This form is maintained as a part of the permanent medical record) 2014 [employer]. All Rights Reserved Venita Hinojosa, LINDA, [facility]-H [email or web address] [phone] MTDD
--- NOTE | 2018-06-15 14:25 | PQF ---
DAVID HAND GROVER MD [id number] CLINICAL DOCUMENTATION CLARIFICATION FORM: POST DISCHARGE Addendum to original discharge summary date: ____ Late entry note date: __ DATE: 06/15/2018 ATTN: DR. GOLD Please exercise your independent, professional judgment in responding to the clarification form. Clinical indicators are provided on the bottom of this form for your review Please check appropriate box(s): [ ] Asthma with Exacerbation [ ] Mild intermittent [ ] Mild persistent [ ] Moderate persistent [ ] Severe Persistent [ ] Other diagnosis [ ] Unable to determine In addition, please specify: Present on Admission (POA): [ ] Yes [ ] No [ ] Unable to determine For continuity of documentation, please document condition throughout progress notes and discharge summary. Thank You. CLINICAL INDICATORS - SIGNS / SYMPTOMS/ LABS: 06/02 -06/03-PN - Asthma exacerbation, probably from bronchitis 06/05 PN - Asthma exacerbation, probably from bronchitis Persists, still have expiratory wheezes RISK FACTORS: History of Asthma TREATMENT: Albuterol nebulizers Steroids (This form is maintained as a part of the permanent medical record) 2014 [employer] All Rights Reserved Venita Hinojosa, [facility], [facility]-H [email or web address] [phone] MTDD
--- NOTE | 2018-06-15 14:35 | PQF ---
DAVID HAND GROVER MD [id number] CLINICAL DOCUMENTATION CLARIFICATION FORM: POST DISCHARGE Addendum to original discharge summary date: ____ Late entry note date: __ DATE: 06/15/2018 ATTN: DR. GOLD Please exercise your independent, professional judgment in responding to the clarification form. Clinical indicators are provided on the bottom of this form for your review Please check appropriate box(s): [ ] Acute blood loss anemia [ ] Post-op anemia related to acute blood loss [ ] Other diagnosis [ ] Unable to determine In addition, please specify: Present on Admission (POA): [ ] Yes [ ] No [ ] Unable to determine For continuity of documentation, please document condition throughout progress notes and discharge summary. Thank You. CLINICAL INDICATORS - SIGNS / SYMPTOMS / LABS: 05/27 PN - Anemia secondary to recent knee replacement Low hemoglobin and/or hematocrit - 05/26 -Hemoglobin 9.9, Hematocrit 29.8 RISK FACTORS: Surgery - Right total knee arthroplasty on 05/23 TREATMENTS: Monitor CBC (This form is maintained as a part of the permanent medical record) 2014 [employer]. All Rights Reserved Venita Hinojosa, [facility], [facility] [email or web address] [phone] Note to Provider: In responding to this query, you must exercise independent clinical judgment. The fact that a query is placed does not imply that any particular answer is desired or expected. Please document your response/ clarification to this query in the patients medical record. Your response should clarify and resolve conflicting, ambiguous, or incomplete information in the health record regarding any significant reportable condition or procedure. ( 2008 [facility] Practice Brief, pg. 5) [employer] does not endorse or approve queries developed by the hospital or its agents and issued through the [employer] Monitor software that are not in accordance with the rules or regulations promulgated by the Centers for Medicare and Medicaid (CMS), Office of Meters Superintendent (OIG), or Department of Health and Human Services and [facility] 2008 Practice Brief Managing an Effective Query Process or its updates (Practice Brief). [place]
== END 2018-06-08 15:30 | disposition home or self-care (01) | DRG 560 ==
LOC: MADMS 19:54
PROVIDERS: ADMIT Family Medicine; ATTEND Family Medicine
DX: Z47.1 Aftercare following joint replacement surgery (principal); L03.115 Cellulitis of right lower limb; N39.0 Urinary tract infection, site not specified; J45.901 Unspecified asthma with (acute) exacerbation; Z96.651 Presence of right artificial knee joint; M17.11 Unilateral primary osteoarthritis, right knee; R26.9 Unspecified abnormalities of gait and mobility; K21.9 Gastro-esophageal reflux disease without esophagitis; K59.03 Drug induced constipation; T50.995A Adverse effect of other drugs, medicaments and biological substances, initial encounter
CPT/HCPCS: 36415; 71046; 80048; 80053; 80202; 81001; 85007; 85025; 85027; 85379; 85652; 86140; 87040; 87804; G8978-GP-CK; G8979-GP-CI; G8987-GO-CJ; G8988-GO-CH; J0696; J1650; J3370; J7050; J7506; J7611

== ENCOUNTER 2019-01-04 08:09 | Emergency (ER) | payer BC, OTHER ==
[2019-01-04 08:37] LABS: Bilirubin Negative (Negative); Blood, Urine Trace (Negative); Clarity Clear (Clear); Glucose, Urine (Dipstick) Negative (Negative); Leukocyte Small (Negative); Nitrite Negative (Negative); Protein, Urine (Dipstick) Negative (Neg-Trace); Urobilinogen 0.2 mg/dL (0.2-1.0)
[2019-01-04 08:38] LABS: Bacteria/HPF Rare-Few HPF (None Seen); RBC/HPF 0-3 HPF (0-3)
== END 2019-01-04 08:50 | disposition home or self-care (01) ==
LOC: MADERS 08:09
DX: N39.0 Urinary tract infection, site not specified (principal); I10 Essential (primary) hypertension; J45.909 Unspecified asthma, uncomplicated; Z79.51 Long term (current) use of inhaled steroids
CPT/HCPCS: 81003; 81015; 87086; 99283

== ENCOUNTER 2019-01-11 03:15 | Emergency (ER) | payer BC, OTHER | END 2019-01-11 04:03 | disposition home or self-care (01) | LOC: MADERS 03:15 | DX: M54.6 Pain in thoracic spine (principal); J45.909 Unspecified asthma, uncomplicated; K21.9 Gastro-esophageal reflux disease without esophagitis; Z79.51 Long term (current) use of inhaled steroids; Z79.899 Other long term (current) drug therapy | CPT/HCPCS: 99281 ==

== ENCOUNTER 2019-01-19 09:43 | Outpatient (CLI) | payer BC, OTHER ==
--- NOTE | 2019-01-19 10:28 | CT ---
CT Thoracic Spine WO Con HISTORY: Back pain for 2 weeks, no history of trauma. COMPARISON: 10/12/2012 plain film examination of the thoracic spine. FINDINGS: There is a moderate S-shaped scoliotic deformity to the spine the primary curvature in the lower thoracic spine region is convex to the right. The bones appear demineralized however the vertebral bodies all maintain normal height. Degenerative changes are seen along the course of the sp ine. No canal stenosis. Lungs show multiple calcified granulomas and calcified hilar lymph nodes. IMPRESSION: Scoliosis and arthritic changes of the spine. No acute process.
--- NOTE | 2019-01-19 10:33 | CT ---
CT Lumbar Spine WO Con HISTORY: Back pain for 2 to 3 weeks without history of trauma. COMPARISON: None. FINDINGS: There is a scoliotic change of the spine with a moderate scoliosis convex to the left. The vertebral bodies maintain normal height. There is marked disc narrowing at L4-5. The left kidney shows some moderate atrophy and a chronically dilated collecting system with a calcul us located at the left ureteral pelvic junction measuring the 6 to 7 mm range. There are some cortical based calcifications also seen within the lower pole left kidney and punctate nonobstructing calculi also seen in the lower pole. T12-L1: Unremarkable L1-2: Degenerative facet changes with some borderline canal narrowing. L2-3: No significant canal or foraminal stenosis at this level. L3-4: Posterior osteophytic change in conjunction with facet and ligament is hypertrophic changes cau se a moderate degree of canal stenosis there is also moderate right-sided foraminal narrowing. L4-5: There is a severe canal stenosis at this level with degenerative facet and ligamentous hypertro phic changes and disc bulge. There is also an mild to moderate bilateral foraminal narrowing. L5-S1 the canal shows a moderate degree of stenosis with prominent degenerative facet changes. There is mild to moderate left-sided foraminal narrowing. IMPRESSION: 1. Atrophic left kidney with a chronically dilated left collecting system and a obstructing 6 to 7 mm calculus located at the ureteropelvic junction. The ureter below this level is nondilated. 2. Scoliosis. 3. Marked canal narrowing at L4-5 with other findings as discussed above.
== END 2019-01-19 09:44 | disposition home or self-care (01) ==
LOC: MADCT 09:43
PROVIDERS: ATTEND Family Medicine
DX: M54.5 Low back pain (principal); M54.6 Pain in thoracic spine; N26.1 Atrophy of kidney (terminal); N20.2 Calculus of kidney with calculus of ureter; M41.9 Scoliosis, unspecified; M48.061 Spinal stenosis, lumbar region without neurogenic claudication; M47.814 Spondylosis without myelopathy or radiculopathy, thoracic region; M47.816 Spondylosis without myelopathy or radiculopathy, lumbar region; M48.07 Spinal stenosis, lumbosacral region
CPT/HCPCS: 72128; 72131

== ENCOUNTER 2019-02-11 04:24 | Emergency (ER) | payer BC, OTHER ==
[2019-02-11] MEDS ORDERED: Sodium Chloride 0.9% 1,000 ML ONE ×3 (04:37→07:15)
[2019-02-11] MEDS ORDERED: Ketorolac Tromethamine 30 MG/ML VIAL ONE ×2 (04:37→05:00)
[2019-02-11 04:55] LABS: #Basophils 0.1 thou/uL (0.0-0.2); #Eosinphils 0.3 thou/uL (0.0-0.7); #Lymphocytes 3.1 thou/uL (1.20-3.40); #Monocytes 0.6 thou/uL (0.11-0.59); #Neutrophils 4.3 thou/uL (1.40-6.50); %Basophils 1.3 % (0.0-1.0); %Eosinophils 3.5 % (0.0-10.0); %Lymphocytes 36.4 % (21.0-51.0); %Monocytes 7.3 % (0.0-10.0); %Neutrophils 51.4 % (42.0-75.0); Hemoglobin 14.1 g/dL (12.0-16.0); Mean Corpuscular HGB CONC 34.5 g/dL (32.0-36.0); Mean Corpuscular Hemoglobin 29.4 pg (27.0-31.0); Mean Corpuscular Volume 85.4 fL (78.0-98.0); Mean Platelet Volume 5.6 fL (7.4-10.4); Platelet Count 279 thou/uL (130-400); RBC Distribution Width 12.2 % (11.5-14.5); Red Blood Cell (RBC) Count 4.79 mill/uL (4.20-5.40); White Blood Cell (WBC) Count 8.4 thou/uL (4.8-10.8)
[2019-02-11 05:09] LABS: ALT (SGPT) 15 U/L (8-55); AST (SGOT) 15 U/L (5-34); Albumin 4.1 g/dL (3.4-4.8); Alkaline Phosphatase 139 U/L (40-150); Anion Gap 16 mmol/L (10-20); BUN (Urea Nitrogen) 17 mg/dL (9.8-20.1); Bilirubin, Total 0.3 mg/dL (0.2-1.2); Calc. Creatinine Clearance 0 mL/min (70-130); Calcium 9.2 mg/dL (7.8-10.44); Carbon Dioxide 20 mmol/L (23-31); Chloride 108 mmol/L (98-107); Estimated GFR-MDRD 49; Globulin 3.2 g/dL (2.4-3.5); Glucose 109 mg/dL (80-115); Lipase 14 U/L (8-78); Potassium 3.8 mmol/L (3.5-5.1); Protein, Total 7.3 g/dL (6.0-8.3); Sodium 140 mmol/L (136-145)
[2019-02-11] MEDS ORDERED: Morphine 4 MG/ML VIAL ONE ×2 (05:42→07:15)
[2019-02-11 06:38] LABS: Bilirubin Negative (Negative); Blood, Urine Negative (Negative); Glucose, Urine (Dipstick) Negative (Negative); Leukocyte Moderate (Negative); Nitrite Negative (Negative); Protein, Urine (Dipstick) Negative (Neg-Trace); Urobilinogen 0.2 mg/dL (Less than 2)
[2019-02-11 06:41] LABS: Clarity Hazy (Clear)
[2019-02-11 06:47] LABS: Bacteria/HPF Rare-Few HPF (None Seen); RBC/HPF 0-3 HPF (0-3); Squamous Epithelial 0-3 HPF (0-3)
--- NOTE | 2019-02-11 08:55 | CT ---
CT ABDOMEN AND PELVIS WITHOUT CONTRAST: INDICATIONS: Flank pain. COMPARISON: No prior comparison. FINDINGS: There is prominent atrophy of the left kidney with moderate dilatation of the left renal collecting s ystem and left renal pelvis, as a result of 9 mm left urinary tract calcification at the junction of the left renal pelvis and proximal left ureter. Numerous small nodules of the lung bases are present, many of which are calcified, indicating granulo matous disease. The solid abdominal organs, bowel, lymph nodes, and vasculature are limited in asses sment, on the basis of the noncontrast technique. Scattered colonic diverticula are present. There is vascular disease. Diffuse osseous degenerative change is present, and there is actually curvature of the visualized thoracolumbar spine. Streak artifact from left hip hardware limits visualization of this region. IMPRESSION: 9 mm obstructing calcification at the left ureteropelvic junction. There is chronic atrophy of the l eft kidney, as well as additional scattered left renal calcifications, located along the periphery of the lower pole, therefore favoring parenchymal calcifications. POS: LISSETH
== END 2019-02-11 07:34 | disposition short-term general hospital (02) ==
LOC: MADERS 04:24
DX: N13.2 Hydronephrosis with renal and ureteral calculous obstruction (principal); J45.909 Unspecified asthma, uncomplicated; K21.9 Gastro-esophageal reflux disease without esophagitis; Z79.51 Long term (current) use of inhaled steroids; Z79.899 Other long term (current) drug therapy
CPT/HCPCS: 74176; 80053; 81003; 81015; 83690; 85025; 96374; 96375; 96376; J1885; J2270; J7050

== ENCOUNTER 2019-03-10 08:35 | Emergency (ER) | payer BC, OTHER ==
[2019-03-10] MEDS ORDERED: Phenazopyridine HCl 97.5 MG TABLET ONE (09:16)
[2019-03-10 09:18] LABS: Bilirubin Moderate (Negative); Blood, Urine Large (Negative); Glucose, Urine (Dipstick) Negative (Negative); Leukocyte Small (Negative); Nitrite Positive (Negative); Protein, Urine (Dipstick) > or equal to 300 mg/dL (Neg-Trace)
[2019-03-10 09:19] LABS: Clarity Cloudy (Clear)
[2019-03-10 09:24] LABS: RBC/HPF Greater than 50 HPF (0-3)
[2019-03-10 09:26] LABS: Bacteria/HPF Rare-Few HPF (None Seen); Calcium Oxalate Crystals Rare HPF (None Seen); Mucous/LPF 1+ LPF (<2+)
[2019-03-10] MEDS ORDERED: Acetaminophen 500 MG TAB ONE (09:32)
== END 2019-03-10 09:38 | disposition home or self-care (01) ==
LOC: MADERS 08:35
DX: N39.0 Urinary tract infection, site not specified (principal); J45.909 Unspecified asthma, uncomplicated; K21.9 Gastro-esophageal reflux disease without esophagitis; Z79.899 Other long term (current) drug therapy; Z79.51 Long term (current) use of inhaled steroids
CPT/HCPCS: 81003; 81015; 87086; 99283

== ENCOUNTER 2019-06-28 09:45 | Outpatient (CLI) | payer OTHER ==
[2019-06-28 10:11] LABS: #Basophils 0.1 thou/uL (0.0-0.2); #Eosinphils 0.5 thou/uL (0.0-0.7); #Lymphocytes 2.9 thou/uL (1.20-3.40); #Monocytes 0.6 thou/uL (0.11-0.59); #Neutrophils 5.7 thou/uL (1.40-6.50); %Basophils 1.2 % (0.0-1.0); %Eosinophils 4.7 % (0.0-10.0); %Lymphocytes 29.7 % (21.0-51.0); %Neutrophils 58.4 % (42.0-75.0); Hemoglobin 14.4 g/dL (12.0-16.0); Mean Corpuscular HGB CONC 30.9 g/dL (32.0-36.0); Mean Corpuscular Hemoglobin 28.5 pg (27.0-31.0); Mean Corpuscular Volume 92.3 fL (78.0-98.0); Mean Platelet Volume 6.2 fL (7.4-10.4); Platelet Count 411 thou/uL (130-400); RBC Distribution Width 11.9 % (11.5-14.5); Red Blood Cell (RBC) Count 5.05 mill/uL (4.20-5.40); White Blood Cell (WBC) Count 9.7 thou/uL (4.8-10.8)
[2019-06-28 10:14] LABS: Bilirubin Negative (Negative); Blood, Urine Trace (Negative); Glucose, Urine (Dipstick) Negative (Negative); Leukocyte Small (Negative); Nitrite Negative (Negative); Protein, Urine (Dipstick) Negative (Neg-Trace); Urobilinogen 0.2 mg/dL (Less than 2)
--- NOTE | 2019-06-28 10:15 | RAD ---
EXAM: Chest Two Views 06/28/2019 10:12 AM HISTORY: Back pain with trauma COMPARISON: Prior exam dated June 01, 2018 FINDINGS: Heart: Stable mild cardiac megaly Pulmonary vessels: Normal. Costophrenic angles: Clear. Lungs: Calcified granuloma are stable. Pneumothorax: None. Osseous structures:Intact. Additional findings: Stable postoperative change of right-sided rotator cuff repair. IMPRESSION: No significant acute intrathoracic disease.
[2019-06-28 10:19] LABS: Clarity Hazy (Clear)
[2019-06-28 10:22] LABS: Anion Gap 13 mmol/L (10-20); BUN (Urea Nitrogen) 10 mg/dL (9.8-20.1); Calc. Creatinine Clearance 0 mL/min (70-130); Calcium 9.8 mg/dL (7.8-10.44); Carbon Dioxide 28 mmol/L (23-31); Chloride 106 mmol/L (98-107); Estimated GFR-MDRD 62; Glucose 94 mg/dL (80-115); Potassium 4.2 mmol/L (3.5-5.1); Sodium 143 mmol/L (136-145)
[2019-06-28 10:24] LABS: Bacteria/HPF Rare-Few HPF (None Seen); RBC/HPF 0-3 HPF (0-3); WBC/HPF 0-3 HPF (0-3)
== END 2019-06-28 09:46 | disposition home or self-care (01) ==
LOC: MADLABBHPM 09:45
PROVIDERS: ATTEND Family Medicine
DX: M54.9 Dorsalgia, unspecified (principal); I10 Essential (primary) hypertension
CPT/HCPCS: 36415; 71046; 80048; 81001; 85025

== ENCOUNTER 2024-02-13 08:48 | Emergency (ER) | payer MEDICARE, OTHER ==
[2024-02-13] MEDS ORDERED: Dexamethasone 10 MG/ML VIAL ONE (09:27)
[2024-02-13] MEDS ORDERED: Orphenadrine Citrate 60 MG/2 ML VIAL ONE (09:27)
[2024-02-13] MEDS ORDERED: HYDROcodone/Acetaminophen 5/325 mg Tablet ONE (09:28)
== END 2024-02-13 10:05 | disposition home or self-care (01) ==
LOC: MADERS 08:48
DX: M47.9 Spondylosis, unspecified (principal); M54.32 Sciatica, left side; I10 Essential (primary) hypertension; K21.9 Gastro-esophageal reflux disease without esophagitis; Z79.899 Other long term (current) drug therapy
CPT/HCPCS: 72100; 96372; J1100; J2360

== ENCOUNTER 2024-03-22 08:55 | Outpatient (CLI) | payer MEDICARE, OTHER ==
[2024-03-22] MEDS ORDERED: Iopamidol 370 76% 100 ML VIAL ONE (09:00)
[2024-03-22] MEDS ORDERED: Sodium Chloride 0.9% 100 ML BAG ONE (09:00)
== END 2024-03-22 08:56 | disposition home or self-care (01) ==
LOC: MADLAB 08:55
PROVIDERS: ATTEND Physician Assistant
DX: H93.A9 Pulsatile tinnitus, unspecified ear (principal); I66.03 Occlusion and stenosis of bilateral middle cerebral arteries
CPT/HCPCS: 36415; 70496; 82565; Q9967

== ENCOUNTER 2025-07-09 10:03 | Outpatient (CLI) | payer MEDICARE, OTHER | END 2025-07-09 10:04 | disposition home or self-care (01) | LOC: MADRAD 10:03 | PROVIDERS: ATTEND Family Medicine | DX: M25.551 Pain in right hip (principal) ==